=== PATIENT | female | born 1965 ===

== ENCOUNTER 2018-07-13 05:38 | Day surgery (SDC) | payer BC ==
[2018-07-09 11:26] VITALS: BMI 43.5
[2018-07-13] MEDS ORDERED: Bupivacaine 0.5% 50 ML IJ ONE ×3 (07:16→08:30)
[2018-07-13] MEDS ORDERED: Etomidate 20 mg/10ml Inj IV ONE (07:28)
[2018-07-13] MEDS ORDERED: Phenylephrine 10 mg/ml Inj ONE (07:36)
[2018-07-13] MEDS ORDERED: Oxycodone/Acetaminophen 5/325 mg Tab PO PRN (07:38)
[2018-07-13] MEDS ORDERED: Midazolam 2 MG/2 ML VIAL ONE (07:50)
[2018-07-13] MEDS ORDERED: Propofol 10 mg/ml Inj (20 ML) ONE (07:55)
[2018-07-13] MEDS ORDERED: CeFAZolin 1 gm in NS 100ml IVPB ONE (08:05)
[2018-07-13] MEDS ORDERED: HYDROmorphone 0.5 mg/0.5 ml ISec IVP PRN ×2 (10:18→10:29)
--- NOTE | 2018-07-13 10:25 | PCM.SURG1 ---
Surgeon's Initial Post Op Note - Surgeon's Notes Surgeon: Monica Leung MD Director Of Marketing Analytics: Fara Kirby PA-C Type of Anesthesia: General Endo Anesthesia Administered By: Dr. Cadena Pre-Operative Diagnosis: right distal biceps tendon tear Operative Findings: see full note Post-Operative Diagnosis: same Operation Performed: open right distal biceps tendon repair Specimen/Specimens Removed: none Estimated Blood Loss: EBL {In ML}: 15 Blood Products Given: N/A Drains Used: No Drains Post-Op Condition: Fair Date of Surgery/Procedure: 07/13/18 Time of Surgery/Procedure: 10:24
--- NOTE | 2018-07-13 10:28 | RAD ---
Date of service: 07/13/2018 PROCEDURE: Fluoroscopy up to 1 hr HISTORY: RT BICEPS TENDON REPAIR COMPARISON: TECHNIQUE: Fluoroscopy was provided in the operating room. 38.0 sec of fluoro time. Cumulative dose 1.67 mGy. Two images were submitted FINDINGS: A small orthopedic hardware device is seen at the site of biceps attachment at the radial tubercle. IMPRESSION: As above
[2018-07-13] MEDS ORDERED: Lactated Ringer's 1,000 ML IV SCH (10:30)
[2018-07-13] MEDS ORDERED: HYDROmorphone 0.5 mg/0.5 ml ISec ONE (10:41)
[2018-07-13 11:20] VITALS: O2SAT 96
[2018-07-13 11:50] VITALS: PULSE 72; RESP 20; TEMP 98.3
[2018-07-13] MEDS ORDERED: Oxycodone/Acetaminophen 5/325 mg Tab PO ONE (11:58)
[2018-07-13] MEDS ORDERED: Oxycodone/Acetaminophen 5/325 mg Tab ONE (12:00)
[2018-07-13 13:16] VITALS: BP 130/78
--- NOTE | 2018-07-13 23:10 | OP ---
PROCEDURE DATE: 07/13/2018 PREOPERATIVE DIAGNOSIS: Right distal biceps tendon rupture. POSTOPERATIVE DIAGNOSIS: Right distal biceps tendon rupture. PROCEDURE: Open distal biceps tendon repair. SURGEON: Kosta Leung MD HISTORICAL RECORDS ADMINISTRATOR: Dr. Leung was assisted by Adrienne Kirby, the physician personal assistant. Sindy Kirby was scrubbed and present throughout the entire case and assisted in the patient positioning, retraction and wound closure. ANESTHESIA: General. COMPLICATIONS: None. ESTIMATED BLOOD LOSS: 15 mL. IMPLANT: Arthrex cortical button. INDICATIONS FOR THE PROCEDURE: This is a 53-year-old female who approximately one month ago sustained an injury to her right elbow. Clinical and MRI examination was consistent with a complete rupture of the biceps tendon. Recommendations were for open repair of the tendon. The risks, benefits and alternatives of the procedure were discussed with the patient including the possibility of nerve damage, re-rupture, and informed consent was obtained. DESCRIPTION OF PROCEDURE: After the surgical site was signed and verified in the preoperative holding area, the patient was taken to the operating room and placed supine on the operating room table. After administration of general anesthesia, the patient received 2 g of Ancef IV. Tourniquet was placed about the right arm. Care was taken to make sure all bony prominences and nerves were well padded and protected, and the right upper extremity was prepped and draped in the usual sterile fashion. Using the C-arm image intensifier, the bicipital tuberosity on the proximal radius was identified, and an approximately 4.5 cm horizontal incision was made, centered over the tuberosity. Soft tissues were dissected bluntly, taking care to retract any of the cutaneous nerve. Dissection was carried down to the bicipital tuberosity. At this point, using my finger, the stump of the biceps was identified. It appeared to be partially healed, scarred into the soft tissues and it was carefully dissected. Once the biceps tendon was free, it was delivered out of the wound and the free torn end was debrided . At this point, using Arthrex FiberLoop, the distal end of the biceps tendon was whip-stitched and the button was attached to the sutures. Next, our attention was directed back to the wound. Using the C-arm again, entry hole for socket was identified in both AP and lateral planes. Satisfied, the guide pin was drilled bicortically. Position of the guide pin was confirmed using the C-arm. Next, using the appropriate-sized reamer, socket was then drilled unicortically. At this point, the wound was copiously irrigated and the button was deployed into the socket out through the cortex of the radius. The button was flipped and using our sutures, the distal end of the biceps was recessed into the socket firmly, getting seated. The suture was then tied to close the loop, and then one limb of the suture was then passed through the more proximal portion of the tendon and then tied securing the tendon. At this point, the arm could fully extend and the fixation was firm. Satisfied, the wound was copiously irrigated and closed using interrupted 2-0 Vicryl suture and 4-0 Monocryl. Sterile dressing was applied and a posterior splint was placed. The patient was awakened from the procedure and taken to the recovery room in stable condition. Kosta Leung MD
== END 2018-07-13 14:13 | disposition home or self-care (01) ==
LOC: SDS 05:38
PROVIDERS: ATTEND Orthopaedic Surgery
DX: S46.211D Strain of muscle, fascia and tendon of other parts of biceps, right arm, subsequent encounter (principal); I10 Essential (primary) hypertension; I25.10 Atherosclerotic heart disease of native coronary artery without angina pectoris; E66.9 Obesity, unspecified; Z68.41 Body mass index [BMI] 40.0-44.9, adult; Z91.040 Latex allergy status
CPT/HCPCS: 24341; J0690; J1170; J2001; J2250; J2370; J2405; J2704; J3010; J7120